=== PATIENT | male | born 1990 | race Hispanic/Latino ===

== ENCOUNTER 2017-08-14 19:24 | Emergency (ER) | payer OTHER ==
[~2017-08-14] VITALS: Ht 170.2 cm; Wt 95.3 kg
[~2017-08-14 19:24] MED LIST: CEPH500C PO; HYDR1TAB PO; HYDR473S17 GT; MOXI400T2 PO; PRD20T PO
--- OUTSIDE RECORDS SUMMARY | 2017-08-14 19:29 | XMS REPORT | Continuity of Care Document ---
Author Author [facility] Organization [facility] Address Unknown Phone Unavailable Allergies There is no data. Medications There is no data. Problems There is no data. Procedures There is no data. Results There is no data. Encounters ACCT No. Visit Date/Time Discharge Status Pt. Type Provider Facility Loc./Unit Complaint [id number] 05/21/2014 00:42:00 05/21/2014 02:18:00 [facility] Emergency
--- NOTE | 2017-08-14 21:28 | Diagnostic Imaging Report ---
INDICATION: Cough, fever, and chills COMPARISON: 05/21/2014 FINDINGS: Frontal and lateral views of the chest demonstrate clear lungs bilaterally. The heart is normal. No pneumothorax. The osseous structures normal. IMPRESSION: Negative chest Dictated by: Dictated on workstation # [id number]
--- NOTE | 2017-08-14 21:56 | ED General ---
General Chief Complaint: Cough/Cold/Flu Symptoms Stated Complaint: COUGH,CHILLS Nursing Triage Note: c/o runny nose, cough and feeling hot and cold x 2 days Nursing Sepsis Screen: No Definite Risk Source of Information: Patient Exam Limitations: No Limitations History of Present Illness Time Seen by Provider: 20:57 Initial Comments This 27-year-old young man presents to emergency room with a couple days of flulike symptoms including chills, hot and cold flashes, cough, mild shortness of air. Allergies and Home Medications Allergies Coded Allergies: Penicillins (Unverified Allergy, Mild, 02/12/12) both parents allergy Home Medications No Active Prescriptions or Reported Meds Constitutional: see HPI EENTM: no symptoms reported Respiratory: see HPI Cardiovascular: no symptoms reported Gastrointestinal: no symptoms reported Genitourinary: no symptoms reported Musculoskeletal: no symptoms reported Skin: no symptoms reported Psychiatric/Neurological: No Symptoms Reported Hematologic/Lymphatic: No Symptoms Reported Immunological/Allergic: no symptoms reported Past Ucxnohh-Ighyhy-Jgusfn Hx Patient Social History Alcohol Use: Denies Use Recreational Drug Use: No Smoking Status: Never a Smoker Recent Foreign Travel: No Contact w/Someone Who Travel: No Recent Infectious Disease Expo: No Recent Hopitalizations: No Physical Abuse: No Sexual Abuse: No Surgeries History of Surgeries: No Respiratory History of Respiratory Disorde: No Cardiovascular History of Cardiac Disorders: No Neurological History of Neurological Disord: No Reproductive System Hx Reproductive Disorders: No Sexually Transmitted Disease: Yes (HX CLAMYDIA) Gastrointestinal History of Gastrointestinal Di: No Musculoskeletal History of Musculoskeletal Dis: No Endocrine History of Endocrine Disorders: No Psychosocial History of Psychiatric Problem: No Suicide Risk Score: 0 Blood Transfusions History of Blood Disorders: No Physical Exam Vital Signs Vital Sign - Last 12Hours 08/14/17 20:29 Temp 98.4 Pulse 99 Resp 18 B/P (MAP) 119/84 (96) Pulse Ox 96 Capillary Refill : Less Than 3 Seconds General Appearance: No Apparent Distress, WD/WN HEENT: PERRL/EOMI, TMs Normal, Normal ENT Inspection Neck: Normal Inspection Respiratory: Lungs Clear, Normal Breath Sounds, No Accessory Muscle Use, No Respiratory Distress Cardiovascular: Regular Rate, Rhythm, No Edema, No Murmur Gastrointestinal: Normal Bowel Sounds, Non Tender, Soft Extremity: Normal Inspection Neurologic/Psychiatric: Alert, Oriented x3, No Motor/Sensory Deficits, Normal Mood/Affect, rubber molder II-XII Norm as Tested Skin: Normal Color, Warm/Dry Progress/Results/Core Measures Suspected Sepsis Recent Fever Within 48 Hours: No Infection Criteria Present: None New/Unexplained Altered Menta: No Sepsis Screen: No Definite Risk Sepsis Diagnosis: SIRS Temperature:98.4 Pulse: 99 Respiratory Rate: 18 Blood Pressure 119 /84 Mean: 96 Results/Orders Micro Results Microbiology 08/14/17 Influenza Types A,B Antigen (ROSA) - Final, Complete Vital Signs/I&O Vital Sign - Last 12Hours 08/14/17 08/14/17 20:29 22:06 Temp 98.4 98.4 Pulse 99 99 Resp 18 18 B/P (MAP) 119/84 (96) Pulse Ox 96 96 Capillary Refill : Less Than 3 Seconds Blood Pressure Mean: 96 Diagnostic Imaging Diagonstic Imaging: Xray Plain Films/CT/US/NM/MRI: chest Comments Chest x-ray viewed by me and report reviewed. See report below: NAME: RACHEL GONZALEZ [facility] REC#: [id number] PT STATUS: REG ER : 1990 PHYSICIAN: BRISA CASTAÑEDA APRN ADMIT DATE: 08/14/17/ER Signed Date of Exam:08/14/17 CHEST PA/LAT (2 VIEW) INDICATION: Cough, fever, and chills COMPARISON: 05/21/2014 FINDINGS: Frontal and lateral views of the chest demonstrate clear lungs bilaterally. The heart is normal. No pneumothorax. The osseous structures normal. IMPRESSION: Negative chest Dictated by: Dictated on workstation # [id number] Dict: 08/14/172123 Trans: 08/14/172130 [facility] [id number] Interpreted by: JACI PLAZA Electronically signed by: JACI PLAZA 08/14/172130 Departure Impression Impression: Primary Impression: Influenza-like symptoms Disposition: 01 HOME, SELF-CARE Condition: Stable Departure-Patient Inst. Referrals: NO,LOCAL PHYSICIAN (PCP/Family) Primary Care Physician Patient Instructions: Viral Syndrome (DC) Add. Discharge Instructions: Drink plenty of clear liquids to stay well-hydrated. You may take ibuprofen up to 600 mg every 6 hours as needed for pain, fever, and chills. Add Tylenol ( acetaminophen) up to 1000 mg every 6 hours as needed for additional relief. You may use other [id number] cough and cold medications but be sure not to double dose the acetaminophen or ibuprofen active ingredients. Return to care if symptoms worsen. All discharge instructions reviewed with patient and/or family. Voiced understanding. Scripts No Active Prescriptions or Reported Meds ROSALINA LANDEROS MD Aug 14, 2017 21:56
[2017-08-14 22:06] VITALS: BP 119/84
== END 2017-08-14 22:07 | disposition home or self-care (01) ==
LOC: EDUNIT# 19:24 → ER 19:26
DX: J11.1 Influenza due to unidentified influenza virus with other respiratory manifestations (principal)
CPT/HCPCS: 71020; 87804; 99282